=== PATIENT | female | born 1990 | race Caucasian/White ===

== ENCOUNTER 2019-06-23 16:49 | Emergency (ER) | payer SELFPAY ==
[~2019-06-23] VITALS: Ht 154.9 cm; Wt 58.1 kg
[2019-06-23 16:52] VITALS: BP 115/77
--- NOTE | 2019-06-23 16:54 | NUR ---
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 PT STATES CHEST PAIN RADIATES TO LT ARM. 6/10 SHARP CONSTANT CHEST PAIN. 2 EPISODES OF VOMITING IN ROUTE. ABD SOFT, ROUND, NONTENDER TO PALP. BOWEL SOUNDS PRESENT X 4 QUAD. STATES SHE WAS SEEN AT CLINIC YESTERDAY FOR NAUSEA STATING SHE THOUGHT SHE WAS , NEGATIVE TEST PER PT. PLACED ON HANDWRITING EXPERT, PULSE OX, AND BLOOD PRESSURE CUFF. VSS MEDHX: ANEMIA ALLERGIES: NKA
--- NOTE | 2019-06-23 16:56 | NUR ---
DR WALTERS EXAMINING PT
[2019-06-23 17:18] VITALS: BP 124/78
--- NOTE | 2019-06-23 17:18 | NUR ---
Patient discharged with v/s stable. Written and verbal after care instructions given and explained. Patient alert, oriented and verbalized understanding of instructions. Ambulatory with steady gait. All questions addressed prior to discharge. ID band removed. Patient advised to follow up with PMD. Rx of zofran 4mg odt given. Patient educated on indication of medication including possible reaction and side effects. Opportunity to ask questions provided and answered.
== END 2019-06-23 17:18 | disposition home or self-care (01) ==
LOC: MED 16:49
DX: R11.2 Nausea with vomiting, unspecified (principal); D64.9 Anemia, unspecified
CPT/HCPCS: 93005; 99283

== ENCOUNTER 2020-12-15 20:38 | Emergency (ER) | payer MEDICAID ==
[~2020-12-15] VITALS: Ht 157.5 cm; Wt 68.0 kg
[2020-12-15] MEDS ORDERED: CLINDAMYCIN 150 MG CAP PO ONE (22:05)
[2020-12-15] MEDS ORDERED: ONDANSETRON 4 MG ODT PO ONE (22:05)
[2020-12-15] MEDS ORDERED: IBUPROFEN 800 MG TAB PO ONE (22:05)
[2020-12-15] MEDS ORDERED: CLIN300C2 PO (22:17)
[2020-12-15] MEDS ORDERED: ONDA-188 SL (22:17)
[2020-12-15] MEDS ORDERED: IBUP-2213 PO (22:17)
[2020-12-15 22:26] VITALS: BP 110/79
--- NOTE | 2020-12-15 22:27 | NUR ---
Patient discharged with v/s stable. Written and verbal after care instructions given and explained. Patient verbalized understanding. Ambulatory with steady gait. All questions addressed prior to discharge. Advised to follow up with PMD.
[2020-12-16] MEDS ORDERED: PRED20TA5 PO (15:25)
[2020-12-16] MEDS ORDERED: DIPH25TA53 PO (15:25)
[2020-12-16] MEDS ORDERED: AMOX500C25 PO (15:25)
== END 2020-12-15 22:26 | disposition home or self-care (01) ==
LOC: MED 20:38
DX: K04.7 Periapical abscess without sinus (principal); K91.89 Other postprocedural complications and disorders of digestive system; Z79.899 Other long term (current) drug therapy
CPT/HCPCS: 99284; Q0162

== ENCOUNTER 2020-12-16 12:22 | Emergency (ER) | payer MEDICAID ==
[~2020-12-16] VITALS: Ht 154.9 cm; Wt 65.3 kg
[~2020-12-16 12:22] MED LIST: CLIN300C2 PO; IBUP-2213 PO; ONDA-188 SL
[2020-12-16 12:39] VITALS: BP 120/71
--- NOTE | 2020-12-16 13:38 | NUR ---
PT TAKEN TO ER BED 3 VIA W/C.
--- NOTE | 2020-12-16 13:50 | NUR ---
30 Y/O FEMALE C/O S/P ALLERGIC REACTION WITH VISIBLE EDEMA TO LIPS, BILATERAL FEET AND ARMS X1DAY. PT WAS IN ER YESTERDAY AND STATES SHE WAS GIVEN CLEOMYCIN, ZOFRAN, AND MOTRIN. DENIES FEVER/CHILLS. DENIES N/V. DENIES SOB. SPO2 99% ON RA. DENIES RX AT HOME PRIOR TO ARRIVAL. PMH: ANXIETY NKA
--- NOTE | 2020-12-16 13:54 | NUR ---
ERMD AT BEDSIDE EVALUATING PT.
[2020-12-16] MEDS ORDERED: FAMOTIDINE 20 MG TAB PO ONE (14:10)
[2020-12-16] MEDS ORDERED: predniSONE 20 MG TAB PO ONE (14:10)
--- NOTE | 2020-12-16 14:32 | NUR ---
PT RESTING, VSS, WILL CONTINUE TO MONITOR.
[2020-12-16] MEDS ORDERED: PRED20TA5 PO (15:25)
[2020-12-16] MEDS ORDERED: DIPH25TA53 PO (15:25)
[2020-12-16] MEDS ORDERED: AMOX500C25 PO (15:25)
--- NOTE | 2020-12-16 15:49 | NUR ---
Patient discharged with v/s stable. Written and verbal after care instructions given and explained. Patient alert, oriented and verbalized understanding of instructions. Wheel Chair Assisted with to car. All questions addressed prior to discharge. ID band removed. Patient advised to follow up with PMD. Rx of AMOXICILLIN, BENDARYL, AND PREDNISONE given. Patient educated on indication of medication including possible reaction and side effects. Opportunity to ask questions provided and answered.
[2020-12-16 15:51] VITALS: BP 121/58
--- NOTE | 2020-12-16 15:53 | NUR ---
Pt vitals taken. pt requested phone to call her ride. pt vitals were taken. patient was stable. turned off lights for patient comfort. bed was in low postion.
== END 2020-12-16 15:49 | disposition home or self-care (01) ==
LOC: MED 12:22
DX: L25.8 Unspecified contact dermatitis due to other agents (principal); T36.8X5A Adverse effect of other systemic antibiotics, initial encounter; Y92.89 Other specified places as the place of occurrence of the external cause
CPT/HCPCS: 99284; J7512; Q0163

== ENCOUNTER 2021-07-28 23:51 | Inpatient (IN) | payer MEDICAID ==
[~2021-07-28] VITALS: Ht 154.9 cm; Wt 75.3 kg
[~2021-07-28 23:51] MED LIST changes: +AMOX500C25 PO; -CLIN300C2 PO; +DIPH25TA53 PO; -IBUP-2213 PO; -ONDA-188 SL; +PRED20TA5 PO
[2021-07-28 23:52] VITALS: BP 124/56
[2021-07-28] MEDS ORDERED: methylPREDNISolone SS 125 MG in WATER STERILE 2 ML IV ONE (23:55)
[2021-07-28] MEDS ORDERED: EPINEPHrine 1 MG/ML AMP ONE (23:55)
[2021-07-28] MEDS ORDERED: EPINEPHrine 1 MG/ML AMP SUBQ ONE (23:55)
[2021-07-28] MEDS ORDERED: diphenhydrAMINE 50 MG/ML VIAL IVP ONE (23:55)
[2021-07-28] MEDS ORDERED: methylPREDNISolone SS 125 MG/2 ML VIAL ONE (23:57)
[2021-07-28] MEDS ORDERED: WATER STERILE 10 ML MC ONE (23:57)
--- NOTE | 2021-07-28 23:57 | NUR ---
PT TAKEN BED 8
[2021-07-29] MEDS ORDERED: NACL 0.9% 500 ML IV ONE (00:05)
--- NOTE | 2021-07-29 00:20 | NUR ---
IV ESTABLISHED 20G LEFT AC
--- NOTE | 2021-07-29 00:20 | NUR ---
31/F BIB SELF C/O ALLERGIC REACTION X1HR AGO. PATIETN STATED THAT SHE HASNT ATE ANYTHING UNUSUAL TODAY. BUT STATED THAT SHE HAS A HX OF HAVING ALLERGIC RXNS IN THE PAST, BUT NOT THIS SEVERE. PATIENT MOUTH AND TONGUE ARE SWOLLEN AND PT APPEARS TO BE IN RR DISTRESS. O2 SAT IS 99% AND RR ARE 10 AND LABORED. PATIENT SKIN INTACT AND WARM TO TOUCH. PMHX DENIES MEDS DENIES NKA
[2021-07-29 00:24] LABS: BASOPHILS % (AUTO) 0.3 % (0.0-2.0); HEMATOCRIT 34.5 % (36-48)
[2021-07-29 00:29] LABS: EOSINOPHILS # (AUTO) 0.5 K/uL (0-0.4); EOSINOPHILS % (AUTO) 4.3 % (0.0-4.0); HEMOGLOBIN 11.6 g/dL (12.0-16.0); LYMPHOCYTES # (AUTO) 5.6 K/uL (2.5-16.5); LYMPHOCYTES % (AUTO) 48.4 % (20.5-51.1); MEAN CORPUSCULAR HEMOGLOBIN 28 pg (27-31); MEAN CORPUSCULAR HGB CONC 34 g/dL (33-37); MEAN CORPUSCULAR VOLUME 82.5 fL (80-94); MONOCYTES # (AUTO) 0.7 K/uL (0.8-1.0); MONOCYTES % (AUTO) 6.1 % (1.7-9.3); NEUTROPHILS # (AUTO) 4.8 K/uL (1.8-7.7); NEUTROPHILS % (AUTO) 40.9 % (42.2-75.2); PLATELET COUNT (AUTO) 402 K/uL (140-450); RED BLOOD CELL COUNT(AUTO) 4.18 MIL/uL (4.20-5.40); RED CELL DISTRIBUTION WIDTH 12.8 % (11.6-13.7); WHITE BLOOD COUNT (AUTO) 11.6 K/uL (4.8-10.8)
--- NOTE | 2021-07-29 00:30 | NUR ---
LAB AT BEDSIDE
[2021-07-29 00:44] LABS: ALBUMIN 3.7 g/dL (3.4-5.0); ANION GAP 11.7 (8-16); CREATININE 0.8 mg/dL (0.6-1.3); TOTAL BILIRUBIN 0.4 mg/dL (0.0-1.0)
--- NOTE | 2021-07-29 00:44 | NUR ---
PATIENT AMBULATED TO THE AND BACK TO BED 8
[2021-07-29 00:55] LABS: POTASSIUM 2.7 mmol/L (3.5-5.1)
[2021-07-29] MEDS ORDERED: KCL 20 MEQ/WATER INJ PREMIX 100 ML IV ONE (01:05)
--- NOTE | 2021-07-29 01:29 | NUR ---
MARJ SWAB COLLECTED AND WALKED TO LAB
[2021-07-29] MEDS ORDERED: NACL 0.9% 1,000 ML IV SCH (01:45)
--- NOTE | 2021-07-29 02:55 | NUR ---
PATIENT AMBULATED TO THE AND BACK TO BED 8
--- NOTE | 2021-07-29 03:30 | NUR ---
PATIENT RESTING IN BED AT THIS TIME. BED LOW AND LOCKED. ZAHIRA SIDE RAILS UP FOR SAFETY
--- NOTE | 2021-07-29 03:45 | NUR ---
REPORT GIVEN TO KATIE NOWAK. TRANSFER OF CARE AT THIS TIME
--- NOTE | 2021-07-29 03:55 | NUR ---
Patient will be admitted to care of Yamilet Álvarez. Admited to Telemetry. Will go to room 124 B. Belongings list completed. Report to LIZZ Lo. Transfer of care at this time.
--- NOTE | 2021-07-29 03:56 | NUR ---
Chart checked and completed.
[2021-07-29 04:00] VITALS: BP 118/63
--- NOTE | 2021-07-29 04:40 | NUR ---
31/F [facility] ED VIA GARY Díaz CHIEF COMPLAINT OF ALLERGIC REACTION. DX IS ANGIO EDEMA. A&OX4. VERBALLY RESPONSIVE AND ABLE TO COMMUNICATE NEEDS. PER PATIENT, SHE WAS EATING REGULAR FOOD AND HAD AN ALLERGIC REACTION. PATIENT DENIES ALLERGIES. PATIENT STATES SHE DOESN'T HAVE A PCP AND NEVER DONE AN ALLERGY TEST IN THE PAST. PATIENT'S THROAT WAS SWELLING PRIOR TO HOSPITALIZATION. PER PATIENT, PATIENT TOOK SOME WARM WATER AND SALT AND DID NOT HELP. IN THE ED, PATIENT WAS GIVEN SOLU-MEDROL, BENADRYL, AND EPINEPHRINE. PATIENT'S K+ IS AT 2.7. PATIENT IS COVERED WITH KCL 20 MEQ. PATIENT'S H&H IS 11.6 AND 34.5 SO PATIENT IS CURRENTLY RECEIVING FFP. VSS. HEAD TO TOE ASSESSMENT COMPLETED WITH LIZZ WELLS. PATIENT IS ORIENTED TO LIGHT, TV, BATHROOM, MEDICAL EQUIPMENT, AND VISITING HOURS. ID BRACELET IS ON. MRSA SWAB COLLECTED.
--- NOTE | 2021-07-29 05:10 | NUR ---
FFP TRANSFUSION COMPLETED. NO ADVERSE REACTION NOTED. S/P VSS. DENIES PAIN. RESPIRATIONS EVEN AND UNLABORED WITH NO APPARENT S/SX OF ACUTE DISTRESS. PATIENT'S IVF SWITCHED TO NS @ 125 ML/HR PER MD ORDER. ALL NEEDS MET. WHITE COMMUNICATION BOARD UPDATED. ALL SAFETY MEASURES IN PLACE. CALL LIGHT WITHIN REACH. WILL CONTINUE TO MONITOR.
--- NOTE | 2021-07-29 07:15 | NUR ---
ENDORSED PATIENT TO LIZZ CORNEJO FOR CONTINUITY OF CARE. PATIENT IS STABLE.
--- NOTE | 2021-07-29 07:30 | NUR ---
RECEIVED PT. FROM [facility] NURSE, PT IS ASLEEP BUT AROUSABLE. ALERT, ORIENTED X4. . VERBALLY RESPONSIVE. NO SOB OR DIFFICULTY BREATHING NOTED. ON ROOM AIR. IV SITE TO LAC 20 G INTACT AND PATENT, NO REDNESS OR SWELLING NOTED. ON IVF OF NS AT 125 CC/HR. ON TELE SR 70 BMP. NO C/O PAIN AT THIS TIME. ALL SAFETY MEASURES PLACED AT ALL TIMES. CALL LIGHT WITHIN PATIENT REACH. BED IN LOW POSITION. IN NO APPRENT DISTRESS NOTED.
[2021-07-29 08:00] VITALS: BP 122/72
[2021-07-29] MEDS: NACL 0.9% 1,000 ML IV SCH ×2 (08:45→18:13)
[2021-07-29] MEDS ORDERED: ZOLPIDEM 5 MG TAB PO PRN (08:45)
[2021-07-29] MEDS ORDERED: POTASSIUM CHLORIDE 10 MEQ TABER PO PRN (08:45)
[2021-07-29] MEDS ORDERED: HYDROcodone/APAP 5/325 MG 1 TAB TAB PO PRN (08:45)
[2021-07-29] MEDS ORDERED: DOCUSATE SODIUM 100 MG GELCAP PO PRN (08:45)
[2021-07-29] MEDS ORDERED: MAG SULF 2000 MG/WATER PREMIX 50 ML IV PRN (08:45)
[2021-07-29] MEDS ORDERED: ONDANSETRON 4 MG/2 ML VIAL IM/IVP PRN (08:45)
[2021-07-29] MEDS ORDERED: LORazepam 2 MG/ML VIAL IM/IVP PRN (08:45)
[2021-07-29] MEDS ORDERED: ACETAMINOPHEN 325 MG TAB PO PRN (08:45)
[2021-07-29 08:53] LABS: BASOPHILS % (AUTO) 0.1 % (0.0-2.0); HEMATOCRIT 35.5 % (36-48); HEMOGLOBIN 11.9 g/dL (12.0-16.0); LYMPHOCYTES # (AUTO) 0.6 K/uL (2.5-16.5); MEAN CORPUSCULAR HEMOGLOBIN 28 pg (27-31); MEAN CORPUSCULAR HGB CONC 34 g/dL (33-37); MEAN CORPUSCULAR VOLUME 81.9 fL (80-94); MONOCYTES % (AUTO) 0.8 % (1.7-9.3); NEUTROPHILS # (AUTO) 4.6 K/uL (1.8-7.7); NEUTROPHILS % (AUTO) 87.1 % (42.2-75.2); PLATELET COUNT (AUTO) 333 K/uL (140-450); RED BLOOD CELL COUNT(AUTO) 4.33 MIL/uL (4.20-5.40); RED CELL DISTRIBUTION WIDTH 12.5 % (11.6-13.7); WHITE BLOOD COUNT (AUTO) 5.3 K/uL (4.8-10.8)
[2021-07-29 09:30] LABS: ANION GAP 9.1 (8-16); CARBON DIOXIDE 25.8 mmol/L (21-32); POTASSIUM 3.9 mmol/L (3.5-5.1)
[2021-07-29 09:35] LABS: PROTHROMBIN TIME 9.8 secs (10.8-13.4)
[2021-07-29 09:58] LABS: CREATININE 0.7 mg/dL (0.6-1.3)
--- NOTE | 2021-07-29 10:00 | NUR ---
PATIENT RESTING COMFORTABLY WITH EYES CLOSED. NO S/SX OF ITCHING, NO RASHES NOTED. RESPIRATION REGULAR AND UNLABORED. ON ROOM AIR AND SATURATING 98%. DOES NOT APPEAR IN PAIN NOR IN RESPIRATORY DISTRESS. IVF NS AT 100 CC/HR INFUSING ORDERED. BRP AND VOIDING WITHOUT DIFFICULTY. AFEBRILE.
[2021-07-29 10:21] LABS: MAGNESIUM 1.7 mg/dL (1.8-2.4); PHOSPHORUS 2.4 mg/dL (2.5-4.9); THYROID STIMULATING HORMONE 0.42 uIU/mL (0.34-3.74)
--- NOTE | 2021-07-29 11:00 | NUR ---
URINE WAS COLLECTED FOR UA AND FOR DRUG SCREEN AND SENT TO LAB, RESULT STILL PENDING.
--- NOTE | 2021-07-29 11:55 | NUR ---
NOTED PT. MAGNESIUM LEVEL IS 1.7, MAGNESIUM SULFATE 2000 MG IV WAS GIVEN ORDERED. NO ADVERSE RXN NOTED. IV TO (L) AC IN PLACE, DENIES PAIN ON IV SITE. WILL CONT. TO MONITOR.
[2021-07-29 12:21] LABS: BARBITURATE, URINE NEGATIVE ng/ml (NEG <=200); BENZODIAZEPINE, URINE NEGATIVE ng/mL (NEG <=200); CANNABINOID, URINE POSITIVE ng/mL (NEG <=50); COCAINE, URINE NEGATIVE ng/mL (NEG <=300); OPIATE, URINE NEGATIVE ng/mL (NEG <=2000); PHENCYCLIDINE SCREEN,URINE NEGATIVE ng/mL (NEG <=25)
[2021-07-29 12:28] LABS: APPEARANCE,URINE CLEAR (CLEAR); BILIRUBIN,URINE NEGATIVE (NEGATIVE); BLOOD, URINE TRACE-I (NEGATIVE); COLOR,URINE YELLOW (YELLOW); LEUKOCYTE ESTERASE ,URINE NEGATIVE (NEGATIVE); NITRITE, URINE NEGATIVE (NEGATIVE); PH,URINE 7.5 (5.0-9.0); UGLUCOSE 3+ (NEGATIVE)
[2021-07-29 13:13] LABS: RBC,URINE 0-5 /HPF (0-5); WBC,URINE 0-5 /HPF (0-5)
[2021-07-29] MEDS: methylPREDNISolone SS 125 MG/2 ML VIAL IVP SCH ×2 (13:14→21:09)
--- NOTE | 2021-07-29 14:00 | NUR ---
RESTING COMORTABLY. IVF NS AT 125 INFUSING ORDERED. IV TO LAC IN PLACE. VOIDING WITHOUT DIFFICULTY. NO C/O ABDOMINAL PAIN, NO NAUSEA OR VOMITING NOTED AT THIS TIME. LUNCH WAS SERVED AND CONSUMED 80% OF DIET. PT. WAS DISCHARGED FROM TELEMETRY THIS MORNING. WILL CONTINUE TO MONITOR.
[2021-07-29 16:00] VITALS: BP 112/56
--- NOTE | 2021-07-29 19:08 | NUR ---
ENDORSED PATIENT TO [facility] NURSE FOR CONTINUITY OF CARE. PATIENT IS AWAKE, ALERT AND ORIENTED X 4. ABLE TO MAKE NEEDS KNOWN TO STAFF. IN STABLE CONDITION.
--- NOTE | 2021-07-29 19:09 | NUR ---
RECEIVED ENDORSEMENT FROM LIZZ MELENDEZ FOR CONTINUITY OF CARE. PATIENT IS STABLE AND AWAKE. A&OX4. VERBALLY RESPONSIVE AND ABLE TO COMMUNICATE NEEDS. DENIES PAIN. ON ROOM AIR. RESPIRATIONS EVEN AND UNLABORED WITH NO APPARENT S/SX OF ACUTE DISTRESS. PATIENT IS AMBULATORY. PATIENT IS CONTINENT OF VOID AND BM. SKIN IS INTACT. IV SITE TO THE L HAND 24G INTACT/PATENT WITH NS INFUSING AT 125 ML/HR. PLAN OF CARE AND WHITE COMMUNICATION BOARD UPDATED. ALL SAFETY MEASURES IN PLACE. BED IN LOW/LOCKED POSITION. CALL LIGHT WITHIN REACH. WILL CONTINUE TO MONITOR.
[2021-07-29 20:00] VITALS: BP 119/62
--- NOTE | 2021-07-29 21:20 | NUR ---
ADMINISTERED SCHEDULED MEDICATION PER MD ORDER. TOLERATED WELL. NADR. DENIES PAIN. RESPIRATIONS EVEN AND UNLABORED WITH NO APPARENT S/SX OF ACUTE DISTRESS. PATIENT STATES SHE FEELS A LOT BETTER TODAY. COMMUNICATION BOARD UPDATED. ALL SAFETY MEASURES IN PLACE. CALL LIGHT WITHIN REACH. WILL CONTINUE TO MONITOR.
--- NOTE | 2021-07-29 23:20 | NUR ---
PATIENT IS STABLE AND ASLEEP IN SIDE-LYING POSITION. CHEST IS RISING AND FALLING EVENLY. RESPIRATIONS EVEN AND UNLABORED WITH NO APPARENT S/SX OF ACUTE DISTRESS. COMMUNICATION BOARD UPDATED. ALL SAFETY MEASURES IN PLACE. BED IN LOW/LOCKED POSITION. WILL CONTINUE TO MONITOR.
--- NOTE | 2021-07-30 03:15 | NUR ---
ROUNDED ON PATIENT. PATIENT IS STABLE AND ASLEEP IN SIDE-LYING POSITION. CHEST IS RISING AND FALLING EVENLY. RESPIRATIONS EVEN AND UNLABORED WITH NO APPARENT S/SX OF ACUTE DISTRESS. COMMUNICATION BOARD UPDATED. ALL SAFETY MEASURES IN PLACE. BED IN LOW/LOCKED POSITION. WILL CONTINUE TO MONITOR.
[2021-07-30 04:00] VITALS: BP 116/67
--- NOTE | 2021-07-30 04:40 | NUR ---
Patient's Plan of Care was discussed and reviewed with HOME HEALTH RN: ELIU/WINIFRED ZAMUDIO
[2021-07-30] MEDS: methylPREDNISolone SS 125 MG/2 ML VIAL IVP SCH (05:14)
--- NOTE | 2021-07-30 05:15 | NUR ---
CHANGED PATIENT'S IVF BAG. TOLERATED WELL. PATIENT IS STABLE AND ASLEEP. CHEST IS RISING AND FALLING EVENLY. RESPIRATIONS EVEN AND UNLABORED WITH NO APPARENT S/SX OF ACUTE DISTRESS. ALL NEEDS MET. COMMUNICATION BOARD UPDATED. ALL SAFETY MEASURES IN PLACE. BED IN LOW/LOCKED POSITION. WILL CONTINUE TO MONITOR.
[2021-07-30 05:51] LABS: HEMATOCRIT 32.3 % (36-48); HEMOGLOBIN 11.1 g/dL (12.0-16.0); LYMPHOCYTES # (AUTO) 0.9 K/uL (2.5-16.5); LYMPHOCYTES % (AUTO) 9.6 % (20.5-51.1); MEAN CORPUSCULAR HEMOGLOBIN 28 pg (27-31); MEAN CORPUSCULAR HGB CONC 34 g/dL (33-37); MEAN CORPUSCULAR VOLUME 81.2 fL (80-94); MONOCYTES # (AUTO) 0.3 K/uL (0.8-1.0); MONOCYTES % (AUTO) 2.8 % (1.7-9.3); NEUTROPHILS # (AUTO) 8.3 K/uL (1.8-7.7); PLATELET COUNT (AUTO) 358 K/uL (140-450); RED BLOOD CELL COUNT(AUTO) 3.97 MIL/uL (4.20-5.40); RED CELL DISTRIBUTION WIDTH 12.6 % (11.6-13.7); WHITE BLOOD COUNT (AUTO) 9.5 K/uL (4.8-10.8)
[2021-07-30 06:02] LABS: ANION GAP 9.8 (8-16); CARBON DIOXIDE 27.3 mmol/L (21-32); CREATININE 0.6 mg/dL (0.6-1.3); POTASSIUM 4.1 mmol/L (3.5-5.1)
[2021-07-30 06:08] LABS: CHOL/HDL RATIO 3.3 (1-4.5); PHOSPHORUS 3.3 mg/dL (2.5-4.9)
[2021-07-30 06:45] LABS: NEUTROPHILS % (AUTO) 87.6 % (42.2-75.2)
--- NOTE | 2021-07-30 07:15 | NUR ---
ENDORSED PATIENT TO KATIE COLE FOR CONTINUITY OF CARE. PATIENT IS STABLE.
--- NOTE | 2021-07-30 07:16 | NUR ---
RECEIVED REPORT FROM ENGINEERING ASSISTANT NURSE FOR CONTINUITY OF CARE. PT IS SLEEPING AT THIS TIME EASILY AROUSABLE BY VERBAL STIMULI. BREATHING EVEN AND UNLABORED ON ROOM AIR. NO DISTRESS NOTED. SKIN IS INTACT, WARM AND DRY TO TOUCH. IV LINE AT LAC 20G INFUSING NS AT 60ML/ HR. PT ON STANDARD PRECAUTION. CALL LIGHT WITHIN REACH. SAFETY MEASURES IN PLACE. WILL CONTINUE TO MONITOR.
--- NOTE | 2021-07-30 08:00 | NUR ---
Patient's Plan of Care was discussed and reviewed with DEEP FAT COOK FRY: DOUGLAS MARSH
[2021-07-30 08:07] LABS: T4 (THYROXINE) 10.4 ug/dL (4.5-12.0)
--- NOTE | 2021-07-30 08:42 | NUR ---
PT IS AWAKE. SITTING IN BED, EATING BREAKFAST. PT A&O4, ABLE TO COMMUNICATE NEEDS. ADMINISTERED SCHEDULED MORNING MED. PT TEACHING GIVEN. PT VERBALIZED UNDERSTANDING. PT STATED, SHE VOMITED EARLIER BUT SAID SHE'S OK WITHOUT TAKING MED FOR VOMITING. SAID THAT SHE MIGHT JUST BE HUNGRY AND SHE FELT SO MUCH BETTER NOW. CALL LIGHT WITHIN REACH. SAFETY MEASURES IN PLACE. WILL CONTINUE TO MONITOR.
[2021-07-30] MEDS ORDERED: CETI10SG1 PO (10:36)
[2021-07-30] MEDS ORDERED: PRED10TA5 PO (10:36)
--- NOTE | 2021-07-30 10:41 | NUR ---
PT IN BED, RESTING. INFORMED PT ABOUT THE DISCHARGE ORDER. PT STATED SHE'LL CALL HER MOM SO HER MOM CAN PICK HER UP. SAFETY PRECAUTIONS IN PLACE.
--- NOTE | 2021-07-30 12:10 | NUR ---
PT DISCHARGED HOME. WALKED PT OUT BY NURSE TO ER WHERE FAMILY MEMBER WAS WAITING. DISCHARGE PAPER DISCUSSED WITH THE PT. PT VERBALIZED UNDERSTANDING. REMOVED IV CATHETER IS INTACT. REMOVED WRIST BAND. ALL BELONGINGS TAKEN UPON DISCHARGED. PT IS STABLE.
[2021-07-30] MEDS ORDERED: methylPREDNISolone SS 40 MG/ML VIAL IVP SCH (13:00)
== END 2021-07-30 12:10 | disposition home or self-care (01) | DRG 811 ==
LOC: MED 23:51 → MTU 07-29 01:51
PROVIDERS: ADMIT Family Medicine; ATTEND Family Medicine
PROC: 30233K1 Transfusion of Nonautologous Frozen Plasma into Peripheral Vein, Percutaneous Approach (ICD-10-PCS; principal; 2021-07-29)
DX: T78.3XXA Angioneurotic edema, initial encounter (principal); D64.9 Anemia, unspecified; Z20.822 Contact with and (suspected) exposure to COVID-19; E87.6 Hypokalemia; Z79.899 Other long term (current) drug therapy
CPT/HCPCS: 36415; 36430; 80048; 80053; 80305; 81001; 82150; 83036; 83690; 83735; 83880; 84100; 84134; 84436; 84443; 85025; 85610; 85730; 86886; 86900; 86901; 87081; 96365; 96372; 96375; 99291; J0171; J1200; J1644; J2930; J3475; J3480; P9017

== ENCOUNTER 2021-12-24 20:49 | Emergency (ER) | payer MEDICAID, OTHER ==
[~2021-12-24 20:49] MED LIST changes: -AMOX500C25 PO; +CETI10SG1 PO; -DIPH25TA53 PO; +PRED10TA5 PO; -PRED20TA5 PO
--- NOTE | 2021-12-24 21:30 | NUR ---
PATIENT CALL TO TRIAGE , NO RESPONSE. PATIENT LEFT WITHOUT BEING SEEN BY . NO FURTHER CARE PROVIDED FOR PATIENT.
--- NOTE | 2021-12-24 21:35 | NUR ---
CALLED FOR THE SECOND TIME, NO RESPONSE
--- NOTE | 2021-12-24 21:40 | NUR ---
CALLED FOR THE THIRD TIME , NO RESPONSE
== END 2021-12-24 21:30 | disposition left against medical advice (07) ==
LOC: MED 20:49
DX: R53.1 Weakness (principal); Z53.21 Procedure and treatment not carried out due to patient leaving prior to being seen by health care provider

== ENCOUNTER 2022-01-08 20:35 | Emergency (ER) | payer OTHER ==
[~2022-01-08] VITALS: Ht 154.9 cm; Wt 72.7 kg
[2022-01-08 22:55] VITALS: BP 141/80
--- NOTE | 2022-01-09 01:21 | NUR ---
PT TO CHAIR B
[2022-01-09 01:29] VITALS: BP 117/76
[2022-01-09] MEDS ORDERED: LORazepam 1 MG TAB PO ONE (01:45)
[2022-01-09 01:59] LABS: BASOPHILS # (AUTO) 0.1 K/uL (0.00-0.22); BASOPHILS % (AUTO) 0.7 % (0.0-2.0); EOSINOPHILS # (AUTO) 0.5 K/uL (0-0.4); EOSINOPHILS % (AUTO) 5.8 % (0.0-4.0); HEMATOCRIT 32.9 % (36-48); HEMOGLOBIN 11.3 g/dL (12.0-16.0); LYMPHOCYTES # (AUTO) 3.1 K/uL (2.5-16.5); LYMPHOCYTES % (AUTO) 39.1 % (20.5-51.1); MEAN CORPUSCULAR HEMOGLOBIN 28 pg (27-31); MEAN CORPUSCULAR HGB CONC 34 g/dL (33-37); MEAN CORPUSCULAR VOLUME 82.7 fL (80-94); MONOCYTES # (AUTO) 0.5 K/uL (0.8-1.0); MONOCYTES % (AUTO) 6.3 % (1.7-9.3); NEUTROPHILS # (AUTO) 3.9 K/uL (1.8-7.7); NEUTROPHILS % (AUTO) 48.1 % (42.2-75.2); PLATELET COUNT (AUTO) 362 K/uL (140-450); RED BLOOD CELL COUNT(AUTO) 3.98 MIL/uL (4.20-5.40); RED CELL DISTRIBUTION WIDTH 12.9 % (11.6-13.7)
[2022-01-09 02:18] LABS: ANION GAP 13.2 (8-16); CARBON DIOXIDE 27.6 mmol/L (21-32); CREATININE 0.7 mg/dL (0.6-1.3); POTASSIUM 3.8 mmol/L (3.5-5.1)
[2022-01-09] MEDS ORDERED: ONDANSETRON 4 MG ODT PO ONE (02:55)
[2022-01-09 03:33] LABS: BARBITURATE, URINE NEGATIVE ng/ml (NEG <=200); BENZODIAZEPINE, URINE NEGATIVE ng/mL (NEG <=200); CANNABINOID, URINE POSITIVE ng/mL (NEG <=50); COCAINE, URINE NEGATIVE ng/mL (NEG <=300); OPIATE, URINE NEGATIVE ng/mL (NEG <=2000); PHENCYCLIDINE SCREEN,URINE NEGATIVE ng/mL (NEG <=25)
[2022-01-09] MEDS ORDERED: ATI.5 PO (03:38)
[2022-01-09] MEDS ORDERED: ONDA-188 PO (03:38)
--- NOTE | 2022-01-09 03:49 | NUR ---
Patient discharged with v/s stable. Written and verbal after care instructions given and explained. Patient alert, oriented and verbalized understanding of instructions. Ambulatory with steady gait. All questions addressed prior to discharge. ID band removed. Patient advised to follow up with PMD. Rx of ATIVAN AND ZOFRAN given. Patient educated on indication of medication including possible reaction and side effects. Opportunity to ask questions provided and answered.
== END 2022-01-09 03:49 | disposition home or self-care (01) ==
LOC: MED 20:35
DX: R06.00 Dyspnea, unspecified (principal); R20.2 Paresthesia of skin; R11.2 Nausea with vomiting, unspecified; F12.90 Cannabis use, unspecified, uncomplicated; Z79.899 Other long term (current) drug therapy
CPT/HCPCS: 36415; 80048; 80305; 85025; 93005; 99284; Q0162

== ENCOUNTER 2022-07-24 23:55 | Emergency (ER) | payer OTHER ==
[~2022-07-24] VITALS: Ht 154.9 cm; Wt 63.5 kg
[~2022-07-24 23:55] MED LIST changes: +ATI.5 PO; +ONDA-188 PO
[2022-07-25 00:16] VITALS: BP 117/73
--- NOTE | 2022-07-25 00:24 | NUR ---
CALLED TO TRIAGE, NO ANSWER
--- NOTE | 2022-07-25 00:55 | NUR ---
TO LOBBY FOLLOWING TRIAGE
[2022-07-25] MEDS ORDERED: IBUPROFEN 600 MG TAB PO ONE (03:05)
--- NOTE | 2022-07-25 03:35 | NUR ---
ULNAR GUTTER SPLINT TO R WRIST. CMS CHECKED BEFORE/AFTER. SLING APPLIED.
[2022-07-25] MEDS ORDERED: NAPR-54 PO (03:49)
[2022-07-25 03:50] VITALS: BP 117/73
== END 2022-07-25 03:50 | disposition home or self-care (01) ==
LOC: MED 23:55
DX: S62.396A Other fracture of fifth metacarpal bone, right hand, initial encounter for closed fracture (principal); Z79.899 Other long term (current) drug therapy; Z79.1 Long term (current) use of non-steroidal anti-inflammatories (NSAID); W18.39XA Other fall on same level, initial encounter; Y92.89 Other specified places as the place of occurrence of the external cause; Y93.89 Activity, other specified; Y99.8 Other external cause status
CPT/HCPCS: 73140; 99283

== ENCOUNTER 2022-08-06 23:52 | Emergency (ER) | payer OTHER ==
[~2022-08-06] VITALS: Ht 154.9 cm; Wt 65.8 kg
[~2022-08-06 23:52] MED LIST changes: +NAPR-54 PO
[2022-08-07 00:08] VITALS: BP 134/61
--- NOTE | 2022-08-07 00:21 | NUR ---
PT TAKEN TO BED 11
[2022-08-07] MEDS ORDERED: NACL 0.9% 1,000 ML IV ONE (00:50)
[2022-08-07] MEDS ORDERED: ONDANSETRON 4 MG/2 ML VIAL IVP ONE (00:50)
[2022-08-07 01:05] LABS: BASOPHILS % (AUTO) 0.4 % (0.0-2.0); EOSINOPHILS # (AUTO) 0.2 K/uL (0-0.4); EOSINOPHILS % (AUTO) 2.3 % (0.0-4.0); HEMATOCRIT 31.6 % (36-48); HEMOGLOBIN 10.9 g/dL (12.0-16.0); LYMPHOCYTES # (AUTO) 2.7 K/uL (2.5-16.5); LYMPHOCYTES % (AUTO) 31.7 % (20.5-51.1); MEAN CORPUSCULAR HEMOGLOBIN 28 pg (27-31); MEAN CORPUSCULAR HGB CONC 35 g/dL (33-37); MEAN CORPUSCULAR VOLUME 79.8 fL (80-94); MONOCYTES # (AUTO) 0.4 K/uL (0.8-1.0); MONOCYTES % (AUTO) 5.2 % (1.7-9.3); NEUTROPHILS # (AUTO) 5.2 K/uL (1.8-7.7); NEUTROPHILS % (AUTO) 60.4 % (42.2-75.2); PLATELET COUNT (AUTO) 358 K/uL (140-450); RED BLOOD CELL COUNT(AUTO) 3.97 MIL/uL (4.20-5.40); RED CELL DISTRIBUTION WIDTH 12.8 % (11.6-13.7); WHITE BLOOD COUNT (AUTO) 8.6 K/uL (4.8-10.8)
[2022-08-07 01:22] LABS: ALBUMIN 3.7 g/dL (3.4-5.0); ANION GAP 12.8 (8-16); CARBON DIOXIDE 29.1 mmol/L (21-32); CREATININE 0.8 mg/dL (0.6-1.3); POTASSIUM 3.9 mmol/L (3.5-5.1); TOTAL BILIRUBIN 0.9 mg/dL (0.0-1.0)
[2022-08-07 03:17] VITALS: BP 109/58
[2022-08-07 03:30] LABS: APPEARANCE,URINE SL CLOUDY (CLEAR); BILIRUBIN,URINE NEGATIVE (NEGATIVE); BLOOD, URINE NEGATIVE (NEGATIVE); COLOR,URINE YELLOW (YELLOW); LEUKOCYTE ESTERASE ,URINE NEGATIVE (NEGATIVE); NITRITE, URINE NEGATIVE (NEGATIVE); UGLUCOSE NEGATIVE (NEGATIVE)
--- NOTE | 2022-08-07 03:40 | NUR ---
PATIENT WITH EPISODE OF VOMITING. DR. RUFFIN MADE AWARE.
[2022-08-07] MEDS ORDERED: diphenhydrAMINE 50 MG/ML VIAL IVP ONE (04:10)
[2022-08-07] MEDS ORDERED: HALOPERIDOL IM 5 MG/ML VIAL IVP ONE (04:10)
[2022-08-07 05:20] LABS: BARBITURATE, URINE NEGATIVE ng/ml (NEG <=200); BENZODIAZEPINE, URINE NEGATIVE ng/mL (NEG <=200); CANNABINOID, URINE NEGATIVE ng/mL (NEG <=50); COCAINE, URINE NEGATIVE ng/mL (NEG <=300); OPIATE, URINE POSITIVE ng/mL (NEG <=2000); PHENCYCLIDINE SCREEN,URINE NEGATIVE ng/mL (NEG <=25)
[2022-08-07] MEDS ORDERED: METR-435 PO (05:28)
[2022-08-07] MEDS ORDERED: ONDA-188 SL (05:28)
--- NOTE | 2022-08-07 05:35 | NUR ---
Discharged by ER MD Flanagan.
== END 2022-08-07 05:35 | disposition home or self-care (01) ==
LOC: MED 23:52
DX: R11.2 Nausea with vomiting, unspecified (principal); N76.0 Acute vaginitis; B96.89 Other specified bacterial agents as the cause of diseases classified elsewhere; Z88.6 Allergy status to analgesic agent; Z79.899 Other long term (current) drug therapy
CPT/HCPCS: 36415; 80053; 80305; 81003; 81025; 85025; 87210; 96361; 96374; 96375; 99284; J1200; J1630; J2405; J7030

== ENCOUNTER 2022-10-03 17:36 | Emergency (ER) | payer OTHER ==
[~2022-10-03] VITALS: Ht 165.1 cm; Wt 68.0 kg
[~2022-10-03 17:36] MED LIST changes: +METR-435 PO; +ONDA-188 SL
[2022-10-03 18:07] VITALS: BP 116/61; PULSE 102; RESP 20; TEMP 97.6; O2SAT 99
[2022-10-03] MEDS: NACL 0.9% 1,000 ML IV ONE ×2 (19:58→21:18)
[2022-10-03] MEDS: ONDANSETRON 4 MG/2 ML VIAL IVP ONE (20:03)
[2022-10-03 20:08] LABS: BASOPHILS % (AUTO) 0.4 % (0.0-2.0); EOSINOPHILS # (AUTO) 0.1 K/uL (0-0.4); EOSINOPHILS % (AUTO) 1.8 % (0.0-4.0); HEMATOCRIT 33.7 % (36-48); HEMOGLOBIN 11.4 g/dL (12.0-16.0); LYMPHOCYTES # (AUTO) 1.9 K/uL (2.5-16.5); LYMPHOCYTES % (AUTO) 30.4 % (20.5-51.1); MEAN CORPUSCULAR HEMOGLOBIN 27 pg (27-31); MEAN CORPUSCULAR HGB CONC 34 g/dL (33-37); MEAN CORPUSCULAR VOLUME 80.2 fL (80-94); MONOCYTES # (AUTO) 0.5 K/uL (0.8-1.0); MONOCYTES % (AUTO) 7.4 % (1.7-9.3); NEUTROPHILS # (AUTO) 3.8 K/uL (1.8-7.7); PLATELET COUNT (AUTO) 392 K/uL (140-450); WHITE BLOOD COUNT (AUTO) 6.3 K/uL (4.8-10.8)
[2022-10-03 20:27] LABS: APPEARANCE,URINE CLEAR (CLEAR); BILIRUBIN,URINE 1+ (NEGATIVE); BLOOD, URINE NEGATIVE (NEGATIVE); COLOR,URINE YELLOW (YELLOW); LEUKOCYTE ESTERASE ,URINE NEGATIVE (NEGATIVE); NITRITE, URINE NEGATIVE (NEGATIVE); PROTEIN,URINE TRACE (NEGATIVE); UGLUCOSE NEGATIVE (NEGATIVE)
[2022-10-03 20:35] LABS: ANION GAP 12.7 (8-16); CALCIUM 9.2 mg/dL (8.5-10.1); CARBON DIOXIDE 26.3 mmol/L (21-32); CREATININE 0.6 mg/dL (0.6-1.3)
[2022-10-03 20:47] LABS: ALBUMIN 3.9 g/dL (3.4-5.0); TOTAL BILIRUBIN 0.8 mg/dL (0.0-1.0); TOTAL PROTEIN, SERUM 8.1 g/dL (6.4-8.2)
[2022-10-03] MEDS ORDERED: METO-485 PO (22:05)
[2022-10-03 22:12] VITALS: BP 107/58; PULSE 98; RESP 20; TEMP 97.6; O2SAT 99
== END 2022-10-03 22:12 | disposition home or self-care (01) ==
LOC: MED 17:36
DX: O21.0 Mild hyperemesis gravidarum (principal); Z3A.01 Less than 8 weeks gestation of pregnancy; Z79.899 Other long term (current) drug therapy; Z88.6 Allergy status to analgesic agent
CPT/HCPCS: 36415; 76817; 80053; 81003; 81025; 84702; 85025; 86900; 86901; 96361; 96374; 99285; J2405; Q0092